=== PATIENT | male | born 1985 | race Caucasian/White ===

== ENCOUNTER 2017-02-10 12:42 | Emergency (ER) | payer BC, OTHER ==
[~2017-02-10] VITALS: Ht 175.3 cm; Wt 106.3 kg
[2017-02-10 12:45] VITALS: Ht 175.3 cm; Wt 106.3 kg
--- OUTSIDE RECORDS SUMMARY | 2017-02-10 12:46 | XMS REPORT | Referral Summary ---
Author Author [facility] Organization [facility] Address Unknown Phone Unavailable Care Team Providers Care Md Ophthalmologist Name Role Phone Meryl Avitia Primary Care Physician [phone] Encounter VC Date(s): 08/21/15 - 08/21/15 [facility] [address] [place] [address]- Discharge Disposition: 01-Home or Self Care Attending Physician: Jason Avitia MD Admitting Physician: Jason Avitia MD Vital Signs Most recent to 1 oldest [Reference Range]: Blood Pressure 160/100 mmHg [90-140/60-90 mmHg] *HI* (08/21/15 8:23 AM) Problem List Condition Effective Dates Status Health Status Informant Blood pressure Active elevated(Confirmed) Knee pain, Active left(Confirmed) Overweight(Confirmed Active ) Shoulder joint pain Active (finding)(Confirmed) Snorings(Confirmed) Active Allergies, Adverse Reactions, Alerts No Known Allergies Medications No data available for this section Results No data available for this section Immunizations Vaccine Date Refusal Reason tetanus/diphth/pertuss (Tdap) adult/adol 02/09/10 hepatitis B adult vaccine 02/19/00 Procedures No data available for this section Social History Social History Type Response Smoking Status Never smoker Assessment and Plan Extracted from: Title: Ambulatory Patient Education Author: Jason Avitia MD Date: Family Medicine Arthralgia Your caregiver has diagnosed you as suffering from an arthralgia. Arthralgia means there is pain in a joint. This can come from many reasons including: Bruising the joint which causes soreness (inflammation) in the joint. Wear and tear on the joints which occur as we grow older (osteoarthritis). Overusing the joint. Various forms of arthritis. Infections of the joint. Regardless of the cause of pain in your joint, most of these different pains respond to anti-inflammatory drugs and rest. The exception to this is when a joint is infected, and these cases are treated with antibiotics, if it is a bacterial infection. HOME CARE INSTRUCTIONS Rest the injured area for as long as directed by your caregiver. Then slowly start using the joint as directed by your caregiver and as the pain allows. Crutches as directed may be useful if the ankles, knees or hips are involved. If the knee was splinted or casted, continue use and care as directed. If an stretchy or elastic wrapping bandage has been applied today, it should be removed and re-applied every 3 to 4 hours. It should not be applied tightly, but firmly enough to keep swelling down. Watch toes and feet for swelling, bluish discoloration, coldness, numbness or excessive pain. If any of these problems (symptoms) occur, remove the mono bandage and re-apply more loosely. If these symptoms persist, contact your caregiver or return to this location. For the first 24 hours, keep the injured extremity elevated on pillows while lying down. Apply ice for 15-20 minutes to the sore joint every couple hours while awake for the first half day. Then 03-04 times per day for the first 48 hours. Put the ice in a plastic bag and place a towel between the bag of ice and your skin. Wear any splinting, casting, elastic bandage applications, or slings as instructed. Only take [id number] or prescription medicines for pain, discomfort, or fever as directed by your caregiver. Do not use aspirin immediately after the injury unless instructed by your physician. Aspirin can cause increased bleeding and bruising of the tissues. If you were given crutches, continue to use them as instructed and do not resume weight bearing on the sore joint until instructed. Persistent pain and inability to use the sore joint as directed for more than 2 to 3 days are warning signs indicating that you should see a caregiver for a follow-up visit as soon as possible. Initially, a hairline fracture (break in bone) may not be evident on X-rays. Persistent pain and swelling indicate that further evaluation, non-weight bearing or use of the joint (use of crutches or slings as instructed), or further X-rays are indicated. X-rays may sometimes not show a small fracture until a week or 10 days later. Make a follow-up appointment with your own caregiver or one to whom we have referred you. A radiologist (specialist in reading X-rays) may read your X-rays. Make sure you know how you are to obtain your X-ray results. Do not assume everything is normal if you do not hear from us. SEEK MEDICAL CARE IF: Bruising, swelling, or pain increases. SEEK IMMEDIATE MEDICAL CARE IF: Your fingers or toes are numb or blue. The pain is not responding to medications and continues to stay the same or get worse. The pain in your joint becomes severe. You develop a fever over 102 F (38.9 C). It becomes impossible to move or use the joint. MAKE SURE YOU: Understand these instructions. Will watch your condition. Will get help right away if you are not doing well or get worse. Document Released: 11/10/2006 Document Revised: 02/01/2013 Document Reviewed: [employer] Patient Information 2015 [employer]. This information is not intended to replace advice given to you by your health care provider. Make sure you discuss any questions you have with your health care provider. No follow up information was provided. Extracted from: Title: Office Visit Note Author: Jason Avitia MD Date: 08/21/15 Assessment/Plan Blood pressure elevated This issue is stable and appropriate refills, lab, and f/u have been discussed. The patient reports their blood pressure has been stable at home and is not having any significant or related problems. There has been no chest pain, chest pressure, soa/neville. Monitor bp at home and report 140/90. Lab needs to be done at [facility] for his insurance. HE needs to call for results due to outside lab. A work/school note was offered and deferred by the patient. Knee pain, left Lab pending. Xray offered and declined. Uric acid pending. Overweight Diet and exercise. Snorings To Sleep Medicine.
--- OUTSIDE RECORDS SUMMARY | 2017-02-10 12:46 | XMS REPORT | Referral Summary ---
Author Author [facility] [place] Organization [facility] [place] Address Unknown Phone Unavailable Care Team Providers Care Rough Carpenter Name Role Phone Meryl Avitia Primary Care Physician [phone] Encounter Date(s): 11/03/15 - 11/03/15 [facility] [place] [address] [place], [place] [address] Discharge Diagnosis: Snoring Discharge Diagnosis: Hypersomnia Discharge Disposition: 01-Home or Self Care Attending Physician: Jean-Pierre Rasmussen MD Admitting Physician: Jean-Pierre Rasmussen MD Referring Physician: Jason Avitia MD Vital Signs Most recent to 1 oldest [Reference Range]: Peripheral Pulse 67 bpm Rate [60-100 bpm] (11/03/15 11:18 AM) Blood Pressure 122/76 mmHg [90-140/60-90 mmHg] (11/03/15 11:18 AM) SpO2 98 % (11/03/15 11:18 AM) Problem List Condition Effective Dates Status Health Status Informant Blood pressure Active elevated(Confirmed) Knee pain, Active left(Confirmed) Overweight(Confirmed Active ) Shoulder joint pain Active (finding)(Confirmed) Snorings(Confirmed) Active Allergies, Adverse Reactions, Alerts No Known Allergies Medications No Known Medications Results No data available for this section Immunizations Vaccine Date Refusal Reason tetanus/diphth/pertuss (Tdap) adult/adol 02/09/10 hepatitis B adult vaccine 02/19/00 Procedures No data available for this section Social History Social History Type Response Smoking Status Never smoker Assessment and Plan Extracted from: Title: Office Visit Note Author: Jean-Pierre Rasmussen Date: 11/03/15 MD Assessment/Plan 1.Snoring 2.Hypersomnia Snoring, tiredness/sleepiness Suspected Sleep Apnea. Patient has multiple risk factors for obstructive sleep apnea. Pre-test probability for sleep apnea is moderate. He is a good candidate for home sleep apnea test. The testing process was explained to the patient in detail. Other testing options as well as therapeutic options were briefly discussed. We will see patient3-4 weeks after test to discuss results and management plan. Patient verbalized understanding and agrees with plan. Patient is advised to avoid driving and other potentially harmful activities if sleepy, drowsy or otherwise impaired. Countermeasures to sleepiness include naps before driving, pulling over to nap if driving and caffeine if patient is not in a potentially harmful setting.
--- OUTSIDE RECORDS SUMMARY | 2017-02-10 12:46 | XMS REPORT | Referral Summary ---
Author Author [facility] [place] Organization [facility] [place] Address Unknown Phone Unavailable Care Team Providers Care Commercial Loan Analyst Name Role Phone Meryl Avitia Primary Care Physician [phone] Encounter Date(s): 11/27/15 - 11/27/15 [facility] [place] [address] [place], [place] [address] Discharge Disposition: 01-Home or Self Care Attending Physician: Jean-Pierre Rasmussen MD Admitting Physician: Jean-Pierre Rasmussen MD Vital Signs No data available for this section Problem List Condition Effective Dates Status Health [...] Smoking Status Never smoker Assessment and Plan No data available for this section
--- OUTSIDE RECORDS SUMMARY | 2017-02-10 12:46 | XMS REPORT | Continuity of Care Document ---
Author Author [facility] Organization [facility] Address Unknown Phone Unavailable Allergies Active Description Code Type Severity Reaction Onset Reported/Identified Relationship to Patient Clinical Status Yes No Known Allergies NKMA N/A N/A 08/21/2015 Medications Problems Procedures Results Encounters ACCT No. Visit Date/Time Discharge Status Pt. Type Provider Facility Loc./Unit Complaint [id number] 11/02/2016 12:12:00 2015 23:59:00 DIS Outpatient [facility] Sleep CP CPAP SUPPLIES [id number] 10/03/2016 12:38:00 2015 23:59:00 DIS Outpatient [facility] CP CPAP [id number] 09/02/2016 06:18:00 2015 23:59:00 DIS Outpatient [facility] Sleep CP CPAP SUPPLIES [id number] 08/03/2016 08:00:00 2015 23:59:00 DIS Outpatient [facility] VC Sleep CP CPAP SUPPLIES [id number] 07/18/2016 13:03:00 2015 23:59:00 DIS Outpatient Jean-Pierre Rasmussen [facility] Sleep CP 2 mo fu [id number] 06/02/2016 14:02:00 2015 23:59:00 DIS Outpatient [facility] CP CPAP [id number] 05/03/2016 15:27:00 2015 23:59:00 DIS Outpatient [facility] Sleep CP CPAP SUPPLIES [id number] 04/02/2016 12:39:00 2015 23:59:00 DIS Outpatient [facility] CP CPAP [id number] 03/29/2016 08:42:00 2015 23:59:00 DIS [facility]ary [id number] 03/03/2016 11:16:00 2015 23:59:00 DIS Outpatient [facility] CP CPAP SUPPLIES [id number] 02/06/2016 09:29:00 2015 23:59:00 DIS Outpatient AdrianBryon Littleo A [facility] CP follow up call post set up [id number] 02/01/2016 11:14:00 2015 23:59:00 DIS Outpatient Adrianavinash Dove Jean-Pierre A [facility] CP auto cpap 5-15 no auth rent 10 months [id number] 01/26/2016 08:03:00 2015 23:59:00 DIS Outpatient Adrianavinash Dove Jean-Pierre A [facility] CP HSAT Nov 27 [facility] [id number] 11/27/2015 09:00:00 2015 23:59:00 DIS Outpatient Adrianavinash Dove Jean-Pierre A [facility] CP [facility] [id number] 11/03/2015 09:50:00 2014 23:59:00 DIS Outpatient Adrianavinash Dove Jean-Pierre A [facility] CP REF DR MARQUEZ SNORING [id number] 08/21/2015 08:02:00 2014 23:59:00 DIS Outpatient Jason Marquez [facility] New FM NPV [id number] 07/03/2016 00:01:00 ACT Outpatient [facility] CP CPAP SUPPLIES [id number] 02/01/2016 16:04:00 ACT Outpatient [facility] CP CPAP SUPPLIES
--- NOTE | 2017-02-10 12:48 | NUR ---
PROVIDER NEIL YEAGER IN ROOM W/ PT.
--- NOTE | 2017-02-10 12:55 | ERPDOC ---
Departure Disposition Decision Date: Feb 10, 2017 Disposition Decision Time: 15:53 Disposition: 01 DISCHARGED HOME, SELF-CARE Impression Impression Impression: Primary Impression: Epigastric abdominal pain Severity: Moderate Condition: Improved Seen By: Mid-level only Referrals: LOBO MARQUEZ MD (Family) Patient Instructions: Acute Abdominal Pain (ED) Problems/Meds/Labs Reviewed?: Yes Medications reviewed and manag: Yes Additional Instructions: Your EKG and chest/abdominal x-rays were normal. Labs did not indicate an infection. Take OTC omeprazole daily. Take Carafate 1 gm before meals and at bedtime. Follow treatment plan. Follow with your PCP if your are not improving in then next 1-2 days for reevaluation. Follow up care ordered?: Yes Mental Status: Alert, Oriented Scripts Sucralfate (Carafate) 1 Gm/10 Ml Oral.susp 1 G PO ACHS for 7 Days, ML Prov: PUSHPA LOPEZ ADMINISTRATIVE SUPPORT ASSISTANT 02/10/17 HPI - Chest Pain General Chief Complaint: Abdominal Pain Stated Complaint: ABD AND CP Time Seen by Provider: 12:48 Source: patient HPI - Chest Pain Initial Comments 31-year-old male presents to ED with complaint of epigastric pain and distal chest pain. Patient states that pain came on suddenly while he was just sitting approximately 30 minutes ago. Describes pain as burning. Patient states that he had not ate anything since this morning. Denies SOB, nausea, vomiting, diarrhea, use of caffeine products today or alcohol in the last 24 hours. No known hx. of heart disease, chest pain or abdominal pain. No family hx. of heart disease. Pain/Severity Scale: Now: 8/10 Location: epigastric, see diagram 1 - Reports pain Quality: burning, constant Associated Symptoms: abdominal pain, diaphoresis, DENIES: back pain, dizziness , fast HR, fever/chills, headache, heartburn, nausea/vomiting, rash, shortness of breath Chest Pain Radiation: no radiation Nitro Today/Relief: 0.4 mg x 3, mild relief Aspirin Treatment Today: 81 mg x 4, provided by ED Allergies: Coded Allergies: No Known Allergies (Unverified , 02/10/17) Past History Past Medical History Metabolic: hypertension (untreated) ENMT: sleep apnea Cardiac: DENIES: angina Respiratory: DENIES: asthma GI: DENIES: GERD, ulcers Male: DENIES: renal insufficiency Neurological: DENIES: seizures Musculoskeletal: DENIES: rheumatoid arthritis Psychological: DENIES: depression Surgical History Denies Surgeries Family History Family PMH: FOUND: diabetes Social History Household Members: family Review of Systems Constitutional Constitutional: DENIES: chills, dizziness, fever, weakness Eyes General: DENIES: erythema, exudate Lids/Accessories: DENIES: erythema, swelling ENMT Ears: DENIES: pain Sinuses: DENIES: congestion, rhinorrhea Mouth/Throat: DENIES: sore throat Cardiovascular Cardiac: chest pain, see HPI, DENIES: murmur Rhythm/Rate: DENIES: palpitations Pulmonary Respiratory: DENIES: cough, dyspnea GI Upper Abdomen: pain, see HPI, DENIES: nausea, vomiting Lower Abdomen: DENIES: diarrhea, pain General: DENIES: dysuria, pain Musculoskeletal General: DENIES: joint pain, pain, tenderness Integumentary Skin: DENIES: color change, itching, rash Neurological General: DENIES: ataxia, change in strength, numbness, paralysis/paresis, weakness Psychiatric Psychiatric: DENIES: anxiety, depression, nervousness Physical Exam General General Nourishment: well nourished, well developed, no acute distress, adult General Body Habitus: well groomed Vitals and Pain First Documented Vital Signs Date Time Temp Pulse Resp B/P Pulse Ox O2 Delivery O2 Flow Rate FiO2 02/10/17 12:45 97.9 62 18 177/103 100 Room Air Weight: Kilograms: Height (feet): Height (inches): Triage Pain Scale: Eyes (brief) Eyes Brief: found: EOMI ENMT (brief) ENMT Brief: NOT FOUND: nasal exudate, nasal swelling Neck (brief) Neck: FOUND: trachea midline, NOT FOUND: adenopathy, thyromegaly Respiratory (brief) Respiratory: FOUND: clear all felix, equal bilaterally, symmetrical Cardiovascular (brief) Cardiac: FOUND: regular rate, regular rhythm Abdomen Palpation: FOUND: soft, tender (Epigastric area), voluntary guarding, NOT FOUND : Denney's sign, hepatomegaly, involuntary guarding, rebound, splenomegaly Auscultation: FOUND: normoactive (x4) Musculoskeletal (brief) Musculoskeletal Brief: NOT FOUND: deformity, loss of motion Integumentary (brief) Integumentary Brief: FOUND: dry, pink, warm Neurologic (brief) Neurological Brief: FOUND: motor-no gross deficits, sensory-no gross deficits Psychiatric (brief) Psychiatric Brief: FOUND: alert, normal affect, oriented Differential Diagnoses Considering: Anxiety/Panic, Biliary Colic, Esophageal Spasm, GERD, Pneumonia, Pulmonary Embolus Progress Results/Orders Orders Procedure Category Date Status Time G.I. Cocktail PHA 02/10/17 Complete (/Maalox/Lidocaine 13:15 Iv Lock (Ed Only) EDM 02/10/17 Transmitted 13:02 Cbc W/Auto LAB 02/10/17 Complete Diff-Reflex Manual 13:02 Cmp - Comprehensive LAB 02/10/17 Complete Metabolic 13:02 Lipase LAB 02/10/17 Complete 13:02 D-Dimer LAB 02/10/17 Complete 13:02 Troponin I W LAB 02/10/17 Complete Hemolysis Index 13:02 EKG EKG 02/10/17 Taken Normal Saline (Ns) PHA 02/10/17 Complete 13:45 Aspirin (Asa) PHA 02/10/17 Complete 14:00 Nitroglycerin PHA 02/10/17 Complete (Nitrostat) 14:00 Abdomen Acute (Inc. RAD 02/10/17 Resulted Chest) Ketorolac (Toradol) PHA 02/10/17 Complete 15:15 Hydromorphone PHA 02/10/17 Complete (Dilaudid) 15:45 Metoclopramide PHA 02/10/17 Complete (Reglan) 16:15 Lab Results Laboratory Tests Test 02/10/17 13:16 White Blood Count 10.5T/MM3 Red Blood Count 5.17M/MM3 Hemoglobin 15.7GM/DL Hematocrit 46.0% Mean Corpuscular Volume 89.0UM3 Mean Corpuscular Hemoglobin 30.4UUG Mean Corpuscular Hemoglobin Concent 34.1GM/DL RDW Standard Deviation 41.0FL Platelet Count 246T/MM3 Mean Platelet Volume 10.7UM3 Immature Granulocyte % (Auto) 0.2% Neutrophils (%) (Auto) 50.9% Lymphocytes (%) (Auto) 39.4% Monocytes (%) (Auto) 7.9% Eosinophils (%) (Auto) 1.2% Basophils (%) (Auto) 0.4% Absolute Immature Granulocyte (auto 0.02T/MM3 Absolute Neutrophils (auto) 5.3T/MM3 Absolute Lymphocytes (auto) 4.1T/MM3 Absolute Monocytes (auto) 0.8T/MM3 Absolute Eosinophils (auto) 0.1T/MM3 Absolute Basophils (auto) 0.0T/MM3 D-Dimer < 150NG/ML Turbidity < 20 Sodium Level 145MEQ/L Potassium Level 3.8MEQ/L Chloride Level 107MEQ/L Carbon Dioxide Level 27MEQ/L Anion Gap 11MEQ/L Blood Urea Nitrogen 17.0MG/DL Creatinine 1.1MG/DL Glomerular Filtration Rate Calc 79 BUN/Creatinine Ratio 16RATIO Glucose Level 119MG/DL Calculated Osmolality 282MOSM/KG Calcium Level 9.7MG/DL Total Bilirubin 0.80MG/DL Icterus Index < 2 Aspartate Amino Transf (AST/SGOT) 54U/L Alanine Aminotransferase (ALT/SGPT) 62U/L Alkaline Phosphatase 58U/L Troponin I < 0.012ng/ml Total Protein 7.8G/DL Albumin 4.5G/DL Globulin 3.3G/DL Albumin/Globulin Ratio 1.4RATIO Lipase 197U/L Chemistry Specimen Hemolysis < 15 Medications Current ED Medications Pharmacy Profile Note 30 ml 30 ml O ONCE PO Last administered on 02/10/17 13: 20; Start 02/10/17 at 13:15; Stop 02/10/17 at 13:16; Status DC Sodium Chloride (NS) 500 ml @ 0 mls/hr Q0M ONCE IV Last administered on 14:10; Start 02/10/17 at 13:45; Stop 02/10/17 at 13:46; Status DC Aspirin (ASA) 324 mg O ONCE PO Last administered on 02/10/17 13:56; Start at 14:00; Stop 02/10/17 at 14:01; Status DC Nitroglycerin (Nitrostat) 0.4 mg Q5MIN PRN SL CHEST PAIN Last administered on 14:50; Start 02/10/17 at 14:00; Stop 02/10/17 at 15:31; Status DC Ketorolac Tromethamine (Toradol) 30 mg O ONCE IV Last administered on 15:27; Start 02/10/17 at 15:15; Stop 02/10/17 at 15:16; Status DC Hydromorphone HCl (Dilaudid) 1 mg O ONCE IV Last administered on 02/10/17 16: 14; Start 02/10/17 at 15:45; Stop 02/10/17 at 15:46; Status DC Metoclopramide HCl (Reglan) 10 mg O ONCE PO Last administered on 02/10/17 16: 17; Start 02/10/17 at 16:15; Stop 02/10/17 at 16:16; Status DC Progress Progress Patient reports minimal relief of epigastric pain after GI cocktail. 8/10 to 6/ 10. Patient has improvement from 6/10 to 5/10 after 1 nitro. 2 additional nitro given without any additional relief of pain. Labs unremarkable Trop <0.012 D-dimer 150 VS improving. acute abdomen/chest, no acute findings I discussed labs and x-rays with patient and answered questions. I could find no etiology for epigastric pain. I discussed close follow up with PCP, treatment plan and return precaution which patient verbalized understanding. EKG EKG : Rate: 60-100 Rhythm: sinus [place]: normal QRS: normal Intervals: normal ST/T: normal Interpreted by: signing physician (Dr. Nicole) Xray Xray : Xray: Abdominal Series (no acute findings) Interpretation: Reviewed Written Report PUSHPA LOPEZ APRN Feb 10, 2017 12:55
--- OUTSIDE RECORDS SUMMARY | 2017-02-10 13:14 | XMS REPORT | Continuity of Care Document ---
Author Author [facility] Organization [facility] Address Unknown Phone Unavailable Allergies Active Description Code Type Severity Reaction Onset Reported/Identified Relationship to Patient Clinical Status Yes No Known Allergies NKMA N/A N/A 08/21/2015 Medications Problems Procedures Results Encounters ACCT No. Visit Date/Time Discharge Status Pt. Type Provider Facility Loc./Unit Complaint [id number] 11/02/2016 12:12:00 2015 23:59:00 DIS Outpatient [facility] VCC Sleep CP CPAP SUPPLIES [id number] 10/03/2016 12:38:00 2015 23:59:00 DIS Outpatient [facility] Sleep CP CPAP [id number] 09/02/2016 06:18:00 2015 23:59:00 DIS Outpatient [facility] Sleep CP CPAP SUPPLIES [id number] 08/03/2016 08:00:00 2015 23:59:00 DIS Outpatient [facility] VC Sleep CP CPAP SUPPLIES [id number] 07/18/2016 13:03:00 2015 23:59:00 DIS Outpatient Jean-Pierre Rasmussen [facility] Sleep CP 2 mo fu [id number] 06/02/2016 14:02:00 2015 23:59:00 DIS Outpatient [facility] Sleep CP CPAP [id number] 05/03/2016 15:27:00 2015 23:59:00 DIS Outpatient [facility] Sleep CP CPAP SUPPLIES [id number] 04/02/2016 12:39:00 2015 23:59:00 DIS Outpatient [facility] Sleep CP CPAP [id number] 03/29/2016 08:42:00 2015 23:59:00 DIS [facility]ary [id number] 03/03/2016 11:16:00 2015 23:59:00 DIS Outpatient [facility] Sleep CP CPAP SUPPLIES [id number] 02/06/2016 09:29:00 2015 23:59:00 DIS Outpatient AdrianBryon Littleo A [facility] Sleep CP follow up call post set up [id number] 02/01/2016 11:14:00 2015 23:59:00 DIS Outpatient Adrianavinash Dove Jean-Pierre A [facility] Sleep CP auto cpap 5-15 no auth rent 10 months [id number] 01/26/2016 08:03:00 2015 23:59:00 DIS Outpatient Adrianavinash Dove Jean-Pierre A [facility] Sleep CP HSAT Nov 27 [facility] [id number] 11/27/2015 09:00:00 2015 23:59:00 DIS Outpatient Adrianavinash Dove Jean-Pierre A [facility] Sleep CP [facility] [id number] 11/03/2015 09:50:00 2014 23:59:00 DIS Outpatient Adrianavinash Dove Jean-Pierre A [facility] Sleep CP REF DR MARQUEZ SNORING [id number] 08/21/2015 08:02:00 2014 23:59:00 DIS Outpatient Jason Marquez [facility] New FM NPV [id number] 07/03/2016 00:01:00 ACT Outpatient [facility] Sleep CP CPAP SUPPLIES [id number] 02/01/2016 16:04:00 ACT Outpatient [facility] Sleep CP CPAP SUPPLIES
[2017-02-10] MEDS ORDERED: G.I. COCKTAIL 30ml PO ONE (13:15)
--- NOTE | 2017-02-10 13:20 | NUR ---
PO MED GI COCKTAIL GIVEN CHARTED W/ PT TOLERANCE.
[2017-02-10 13:21] LABS: BASOPHILS % (AUTO) 0.4 % (0-2); EOSINOPHILS # (AUTO) 0.1 T/MM3 (0-0.5); EOSINOPHILS % (AUTO) 1.2 % (0-4); HGB - HEMOGLOBIN 15.7 GM/DL (13.5-17.5); IMMATURE GRANULOCYTE # (AUTO) 0.02 T/MM3 (0.00-0.03); IMMATURE GRANULOCYTE % (AUTO) 0.2 % (0.0-0.5); LYMPHOCYTES # (AUTO) 4.1 T/MM3 (1-4.8); LYMPHOCYTES % (AUTO) 39.4 % (23-45); MEAN CORPUSCULAR HGB 30.4 UUG (26-34); MEAN CORPUSCULAR HGB CONC(MCHC 34.1 GM/DL (31-37); MEAN PLATELET VOLUME 10.7 UM3 (9.4-12.4); MONOCYTES # (AUTO) 0.8 T/MM3 (0-0.8); MONOCYTES % (AUTO) 7.9 % (0-9.0); NEUTROPHILS #(AUTO)-ABSOLUTE 5.3 T/MM3 (1.8-7.7); NEUTROPHILS % (AUTO) 50.9 % (33-66); RED BLOOD COUNT 5.17 M/MM3 (4.50-5.90); WBC - WHITE BLOOD COUNT 10.5 T/MM3 (4.5-11.0)
[2017-02-10] MEDS ORDERED: NO ROUTINE MEDS (13:31)
[2017-02-10 13:37] LABS: ALBUMIN 4.5 G/DL (3.5-5.0); ALBUMIN/GLOBULIN RATIO 1.4 RATIO (1.1-2.2); ALKALINE PHOSPHATASE 58 U/L (38-126); ALT (SGPT) 62 U/L (21-72); ANION GAP 11 MEQ/L (5-15); AST (SGOT) 54 U/L (17-59); BUN/CREATININE RATIO 16 RATIO (6-26); CALCIUM 9.7 MG/DL (8.4-10.2); CHLORIDE 107 MEQ/L (98-107); CO2 - CARBON DIOXIDE 27 MEQ/L (22-30); CREATININE 1.1 MG/DL (0.8-1.5); GLOMERULAR FILTRATION RATE 79; GLUCOSE 119 MG/DL (75-110); POTASSIUM 3.8 MEQ/L (3.6-5); SODIUM 145 MEQ/L (134-144); TOTAL PROTEIN 7.8 G/DL (6.3-8.2)
[2017-02-10] MEDS ORDERED: NORMAL SALINE 500 ML IV ONE (13:45)
--- NOTE | 2017-02-10 13:56 | NUR ---
PO MEDS ASA GIVEN CHARTED W/ PT TOLERANCE.
[2017-02-10] MEDS ORDERED: ASPIRIN 81 MG CHEWABLE TABLET PO ONE (14:00)
[2017-02-10 14:10] LABS: LIPASE 197 U/L (23-300)
[2017-02-10] MEDS: NITROGLYCERIN 0.4 MG SUBLINGUAL TABLET SL PRN ×3 (14:16→14:50)
--- NOTE | 2017-02-10 14:46 | NUR ---
IV FLUID 500CC NS BOLUS INFUSED IV SITE WITHOUT REDNESS OR SWELLING
--- NOTE | 2017-02-10 14:50 | NUR ---
XRAY PT GOING TO XRAY VIA CART.
--- NOTE | 2017-02-10 14:50 | NUR ---
SL MEDS PT GIVEN CHARTED NTG W/ NO CHANGE IN PAIN.
--- NOTE | 2017-02-10 15:05 | NUR ---
XRAY PT GONE TO XRAY VIA CART.
[2017-02-10] MEDS ORDERED: KETOROLAC 30mg/ml INJECTION IV ONE (15:15)
--- NOTE | 2017-02-10 15:15 | DI ---
Indication: ITS.REASON: epigastric pain PROCEDURE: PA view of the chest with supine and upright AP views of the abdomen Encounter: Initial Comparison: None FINDINGS: The lungs are clear. There is no abnormal airspace opacity, pleural effusion or pneumothorax identified. The heart size, pulmonary vasculature and mediastinum are within normal limits. There is no free air on the upright view. The bowel gas pattern is nonobstructive and nonspecific. Gas is seen in nondilated small and large bowel to the level of the rectum. Moderate stool is seen throughout the colon. The bony structures are grossly unremarkable. IMPRESSION: 1. No acute cardiopulmonary abnormality. 2. No evidence of acute obstruction or free air. .
[2017-02-10] MEDS ORDERED: HYDROMORPHONE 2mg/ml INJECTION IV ONE (15:45)
[2017-02-10] MEDS ORDERED: SUCR1ORA3 PO (16:11)
[2017-02-10 16:42] VITALS: BP 118/57; PULSE 64; RESP 15; TEMP 98; O2SAT 93
--- NOTE | 2017-02-10 16:42 | NUR ---
DISCHARGE PT GIVEN INSTRUCTIONS FOR CONT CARE OF ACUTE ABD PAIN W/ RX X1 CARAFATE. PT VERBALIZED UNDERSTANDING AND SIGNED FORM, PT LEFT ER ALERT ,AMBULATORY W/O ASSIST, CONDITION IMPROVED 1-2/10 PAIN AND NO ACUTE DISTRESS.
== END 2017-02-10 16:42 | disposition home or self-care (01) ==
LOC: ED 12:42
DX: R10.13 Epigastric pain (principal); R07.9 Chest pain, unspecified; R61 Generalized hyperhidrosis; I10 Essential (primary) hypertension
CPT/HCPCS: 36415; 80053; 83690; 84484; 85025; 85379; 93005